=== PATIENT | male | born 1975 | race Caucasian/White ===

== ENCOUNTER → 2018-12-25 | Day surgery (SDC) | payer OTHER ==
[2018-12-19 15:47] LABS: PLATELET COUNT, AUTOMATED 249 K/uL (150-450)
[~2018-12-25] VITALS: Ht 182.9 cm; Wt 97.5 kg
[2018-12-25] VITALS (9 sets, daily range): BP systolic 125–140; BP diastolic 85–91
[~2018-12-25] MED LIST: ACETAMINOPHEN 500 MG TAB PO ONE; APREPITANT 40 MG CAP PO ONE; DEXAMETHASONE SOD PHOS 10MG/ML ONE; DOCU-416 PO; FAMOTIDINE 20 MG TAB PO ONE; FLUT9.9S; HALOPERIDOL LACT 5 MG/ML VIAL IM ONE; KETAMINE HCL 200 MG/20 ML MDV ONE; LIDOCAINE MPF 1% 5 ML VIAL ONE; LIDOCAINE/SOD BICARB 8.4% SYR ID ONE; LOR5 PO; MIDAZOLAM 2 MG/2 ML VIAL IVP PRN; NO MEDICATION; NORMOSOL R SOLN(*) 1000 ML BAG 1,000 ML IV PRN; ONDANSETRON 4 MG/2 ML VIAL ONE; OXYC-854 PO; PREGABALIN 150 MG CAPSULE PO ONE; PROPOFOL EMUL(*) 10MG/ML 20 ML 20 ML ONE; ROPIVACAINE 0.5% 20 ML VIAL ONE; SUGAMMADEX SOD 200 MG/2 ML SDV ONE; ceFAZolin(*) 2GM/D5W 50ML 50 ML IVPB ONE; fentaNYL CITR 100 MCG/2 ML AMP ONE; fentaNYL CITR 250 MCG/5 ML AMP ONE
--- NOTE | 2018-12-25 09:23 | Short(Outpt) Discharge Summary ---
Discharge Summary Reason for Hosp/Final Diag: (1) Left inguinal hernia Status: Chronic Hospital Course & Plan: Robotic LIH repair completed without problems. Departure Discharge to: Home, Self Care Discharge Instructions Home Meds Active Scripts Docusate Sodium (COLACE) 100 Mg Capsule, 1 CAP PO BID, #30 CAP 0 Refills TAKE WITH A FULL GLASS OF WATER Prov:MENDY CERVANTES MD 12/25/18 Oxycodone Hcl/Acet 5/325 Mg (ENDOCET 5-325 TABLET) 1 Each Tablet, 1 TAB PO Q4H PRN for PAIN, #20 TAB 0 Refills Prov:MENDY CERVANTES MD 12/25/18 Reported Medications Fluticasone Propionate (Flonase Allergy Relief) 9.9 Ml Brandon.susp, 1 SPRAY NA QDAY PRN for ALLERGY SYMPTOMS 12/02/18 Discontinued Reported Medications [No Medication] No Conflict Check, 0 Refills 04/23/11 Follow up Referrals: General Surgery - 01/09/19 @ Surgery, General with MENDY CERVANTES MD You have a follow up appointment scheduled with Dr. Cervantes on 01/09/19, at 9:00am. Diet: Regular Activity: As Tolerated Special Instructions: You may remove the white surgical dressings on 12/27/18, then you can shower. After showering, leave the incisions open to air but leave the steristrips in place until they fall off on their own. Do not immerse the incisions for 2 weeks. Avoid any activity that involves straining or lifting more than 10 pounds for 2 weeks after surgery. MENDY CERVANTES MD Dec 25, 2018 09:23
--- NOTE | 2018-12-25 09:30 | Post Operative Progress Note ---
Post Operative Progress Note Date: Dec 25, 2018 Time: 09:24 Surgeon: Jamir Dictation number: [id number] Anesthesia: GETA by Dr. Cat Pre-Op Diagnosis: LIH Post-Op Diagnosis: RASHARD, indirect Findings: C/W indirect LIH, no RIH Procedure(s): Robotic LIH repair Specimen Removed:(May be N/A): None Complications: None Fluids: See anesthesia record Estimated Blood Loss: Minimal Date OP Note Dictated: Dec 25, 2018 Time OP Note Dictated: 09:24 MENDY CERVANTES MD Dec 25, 2018 09:30
--- NOTE | 2018-12-25 10:00 | OPERATIVE REPORT 1 ---
EVENT DATE: December 25, 2018 SURGEON: Fredrick Bowie MD ANESTHESIOLOGIST: Jamshid Cat MD ANESTHESIA: General endotracheal. PREOPERATIVE DIAGNOSIS Left inguinal hernia. POSTOPERATIVE DIAGNOSIS Left inguinal hernia. PROCEDURE Robotic left inguinal hernia repair. COMPLICATIONS None. CONDITION Stable. ESTIMATED BLOOD LOSS Minimal. FINDINGS Patient had an indirect left inguinal hernia. No direct component and there was no right inguinal hernia. INDICATIONS This is a 43-year-old gentleman who presented to my office with a left groin bulge and exam was consistent with inguinal hernia. He provided consent for robotic left inguinal hernia repair. DESCRIPTION OF PROCEDURE The patient was brought to the operating room, placed supine on the operating table. General endotracheal anesthesia was administered and his abdomen was prepped and draped in sterile fashion. Time-out was completed and I injected the left subcostal skin several centimeters below the costal margin and left mid clavicular line with 0.5% ropivacaine plain and made an 8 mm transverse incision in this area. I then used the Veress needle and accessed the abdomen with no problems and insufflated the abdominal cavity to a pressure of 15 mmHg. I then used the optical 8 mm robotic trocar with the camera focused and inserted the trocar into the insufflated abdomen under direct visualization. Under direct visualization, I placed an 8 mm robotic port in the epigastric midline and another one in the right upper quadrant in the mid clavicular line. I then had the patient placed in Trendelenburg, inspected both of his groins and noted the left inguinal hernia, which had omentum going into it but no bowel at the time of surgery and there was no right inguinal hernia. I then inserted a left sided piece of ProGrip mesh into the patient's abdomen as well as a V-Loc absorbable suture. I then brought in the robot, docked and targeted the robot, inserted the instruments and then scrubbed out and went to the console. I then divided the peritoneum from the midline all the way to just medial to the anterior superior iliac spine on the left side and then created the preperitoneal space all the way down to the ileopubic tract and to the cord structures and also identified the pubic tubercle and Jim's ligament on the patient's left. I then identified a very large cord lipoma, which I was able to reduce from the inguinal canal and then I identified the hernia sac, which I grasped and retracted and from the cord structures all the way back well past where the cord structures splayed. Once I had the entire groin dissected and the cord structure skeletonized and identified the peritoneum and hernia sac and had this well away from the myopectineal orifice, I placed the mesh in the preperitoneal space, spread it out so it covered the left pubic tubercle and Jim's ligament and made sure it laid flat all the way across and it covered the whole myopectineal arch quite nicely and then I laid all of the cord lipoma on top of the mesh so that the mesh was between it and the inguinal canal and then I everted the hernia sac into the peritoneal cavity. I then closed the peritoneal defect with a running V-Loc absorbable suture and I incorporated the hernia sac into the closure by suturing it up so that it did not micky back into the inguinal canal. When this was completed and suture was removed from the patient's abdomen, instruments were removed, robot was undocked and moved away from the table, the abdomen was desufflated and ports removed. I then closed the skin of each port site with 4- 0 Monocryl subcuticular sutures. Skin was cleaned, dried, and Steri-Strips were applied followed by sterile surgical dressings. The patient was awakened and extubated in the operating room and transported to the recovery room in stable condition, having tolerated the procedure without any apparent problems. VIVIAN
--- NOTE | 2018-12-25 13:06 | NUR ---
1234 SBAR REPORT WAS RECEIVED FROM Jessica EUCEDA RN 1240 PATIENT WAS GIVEN MORE WATER 1300 PATIENT STATES THE PAIN MEDS IS TAKING THE EDGE OFF. HE RATES HIS PAIN 4/10 SITTING BUT STATES IT IS 10/10 WITH MOVEMENT. PATIENTS O2 WILL OCC DROP TO 85% ON ROOM AIR BUT IT RISES QUICKLY WITH DEEP BREATHING. 1305 IV WAS SALINE LOCKED 1306 PATIENT BEGAN EATING VANILLA PUDDING. SBAR REPORT WAS GIVEN TO TIN EUCEDA RN.
== END ==
LOC: OR 00:32
PROVIDERS: ATTEND Surgery
DX: K40.90 Unilateral inguinal hernia, without obstruction or gangrene, not specified as recurrent (principal)
CPT/HCPCS: 36415; 49650; 85025; C1781; J1100; J1630; J2001; J2250; J2405; J2704; J2795; J3010; J3490; J8501; S2900; J0690